=== PATIENT | female | born 1950 | race Caucasian/White ===

== ENCOUNTER → 2019-04-08 08:22 | Outpatient (CLI) | payer MEDICARE, SELFPAY ==
--- NOTE | 2019-04-08 | DI.US.S_ITS ---
ULTRASOUND OF RIGHT BREAST AND AXILLA: 04/08/2019 CLINICAL: Palpable right axilla lump. History bilat mastectomy 30 yrs ago. No prior exams were available for comparison. Real-time ultrasound of the right breast axilla was performed. Mclaughlin scale images of the real-time examination were reviewed. No significant abnormalities were seen sonographically in the right axilla. Patient is status post bilateral mastectomy. IMPRESSION: NEGATIVE There is no sonographic evidence of malignancy. There is no abnormality seen in the right axilla to correspond with the area of clinical concern and palpable abnormality in the right axilla, however, clinical followup is recommended for persistent or worsening symptoms. Follow-up with ACR/ACS guidelines. This exam was interpreted at Station ID: [id number]. Electronically Signed By: Jeremiah Rainey M.D. aty/:04/08/2019 14:55:34 Ultrasound BI-RADS: 1 Negative
== END ==
PROVIDERS: PCP Internal Medicine; Visit Provider Internal Medicine
DX: N63.31 Unspecified lump in axillary tail of the right breast (principal); Z90.13 Acquired absence of bilateral breasts and nipples
CPT/HCPCS: 76882

== ENCOUNTER → 2020-02-20 20:08 | Outpatient (ROUT) | payer MEDICARE, SELFPAY | PROVIDERS: PCP Internal Medicine; Visit Provider Internal Medicine | DX: N39.41 Urge incontinence (principal) | CPT/HCPCS: 87086 ==